=== PATIENT | male | born 1970 | race Caucasian/White ===

== ENCOUNTER 2023-06-15 06:21 | Emergency (ER) | payer OTHER, SELFPAY ==
[2023-06-15] VITALS (7 sets, daily range): BP systolic 121–167; BP diastolic 68–98; BMI 44.6
[2023-06-15 07:11] LABS: Hematocrit 42.1 % (39.0-52.0); Hemoglobin 15.4 g/dL (13.0-18.0); Mean Corp Hgb Conc. 36.6 g/dL (33.0-37.0); Mean Corpuscular Hgb 32.6 pg (27.0-31.0); Mean Platelet Volume 10.1 fL (7.4-10.4); Platelet Count 194 10^3/uL (130-400); Red Blood Cell Count 4.73 10^6/uL (4.70-6.10); Red Cell Dist. Width 13.2 % (11.5-14.5); White Blood Cell Count 10.5 10^3/uL (4.8-10.8)
--- NOTE | 2023-06-15 07:20 | ED.GENMED ---
History of Present Illness
General
Chief Complaint: Abdominal Pain
Source: patient
Exam Limitations: none
Time Seen by Provider: 06/15/23 07:07
Nursing documentation reviewed up to this point in time: agreed with
Travel History
Have you had any contact with someone who has COVID-19?: No
Do you have any symptoms of coronavirus? Fever > 100 degrees, chills, cough, shortness of breath, sore throat, loss of taste or smell, muscle aches, or headache?: No
History of Present Illness
History of Present Illness:
53 yo male presents to the emergency department complaining of right upper quadrant pain since 1 AM. He feels mild nausea, no vomiting. He states he was having gallbladder problems several months ago and seen at [facility]. They told him he was
going to have a cholecystectomy, but then his pain improved and he was discharged home.
Past History
Past History
ED Past Medical History: Other (Cervical spine disease) and Other (Kidney stone/gout)
ED Past Surgical History: Orthopedic (Spinal decompression)
Review of Systems
Review of Systems
Allergies reviewed?: Yes
All Other Systems: Not applicable
Constitutional: Reports no symptoms
EENT: Reports no symptoms
Respiratory: Reports no symptoms
Cardiac: Reports no symptoms
ABD/GI: Reports abdominal pain and nausea
: Reports no symptoms
Musculoskeletal: Reports no symptoms
Skin: Reports no symptoms
Neurological: Reports no symptoms
Endocrine: Reports no symptoms
Hematologic/Lymphatic: Reports no symptoms
Psychiatric: Reports no symptoms
Phy Exam
Physical Exam
Physical Exam:
Physical Exam
General: Appears uncomfortable, afebrile
Neck: supple. no meningeal signs. normal posterior pharynx
Heart: s1/s2 regular rate and rhythm, no murmur. equal radial
pulses.
HEENT: Pupils equal round reactive to light, EOMI
Lungs: no acute respiratory distress. clear bilaterally
Abdomen: normal bowel sounds. Right upper quadrant tenderness. No CVAT
Neuro: alert and oriented. no focal neurological deficits cranial nerves II through XII intact
Skin: no rash
Psychiatric: well kept. interactive and cooperative
Extremities: no edema. no calf tenderness. negative homans. good distal pulses
Course
Orders/Labs/Results
Orders:
Orders
06/15/23 06:45
Electrocardiogram (*1) Urgent
Reason for Study: Abdominal Pain
EKG- Treatment ONCE
06/15/23 07:04
CMP [Comprehensive Metabolic Panel] Urgent
Complete Blood Count/No Diff Urgent
Lipase Urgent
06/15/23 07:20
US Abdomen Complete/Upper Urgent
Comment:
Reason For Exam: RUQ abd pain since 1 am
06/15/23 07:23
Ketorolac [Toradol] 15 mg IV NOW STA
Abnormal Lab Results
06/15/23
07:04
MCH 32.6 H pg
(27.0-31.0)
Chloride 108 H mmol/L
(98-107)
Glucose 196 H mg/dl
(70-99)
06/15/23 07:04
06/15/23 07:04
Vital Signs
Initial and Last Documented VS:
Initial Vital Signs
Temp Pulse Resp BP Pulse Ox
97.8 F 85 20 167/92 98
06/15/23 06:34 06/15/23 06:34 06/15/23 06:34 06/15/23 06:34 06/15/23 06:34
Last Documented Vital Signs
Temp Pulse Resp BP Pulse Ox
97.8 F 77 16 121/68 94
06/15/23 06:34 06/15/23 08:07 06/15/23 08:07 06/15/23 10:00 06/15/23 10:45
MDM/Problems Addressed
Differential Diagnosis Includes:
Cholecystitis, pancreatitis
MDM/Problems Addressed:
53-year-old male with biliary colic. Pain improved after IV Toradol. Seen by Dr. Fishman, who will follow-up as outpatient.
*Radiology
Radiology exam reviewed: radiology read reviewed (Ultrasound abdomen shows gallbladder wall thickening, stone at gallbladder neck)
*Pulse Oximetry
Patient hypoxic: no
*EKG
Interpreted by ED Provider?: NA
*Tax Compliance Representative Interpretation
Rate: Tax Compliance Representative- N/A
*Critical Care Note
Total Time (30-74mins, 75-104mins- exclusive of procedures): Not Applicable
Patient Management
Social determinants of health affecting care: Strong social support
Discussion with other providers: Roving Weight Gauger (General surgery)
Escalation/DeEscalation of care consider admission/obs:
Admit not indicated
ED Attending Note
-
Portions of this chart may have been created with voice recognition software.� Occasional wrong word or��sound alike� substitutions may have occurred due to the inherent limitations of voice recognition software.
Discharge Plan
Departure
Patient Disposition: Home (Routine Discharge)
Date of Disposition: 06/15/23
Time of Disposition: 11:37
Patient with high blood pressure during this ER visit?: Yes
Condition: Good
Discharge Problem:
Biliary colic
Instructions: Gallstones ED, BLOOD PRESSURE
Prescriptions:
No Action
allopurinol 100 MG tablet
200 mg PO DAILY
Referrals:
Sandeep Fishman MD [Active] - Call in 1-3 days for appt
Walter Denis Jr., DO [Family Provider] -
Interventions
Interventions:
*Risk Screen - Suicide Last Done: 06/15/23 07:08
*General Assessment Last Done: 06/15/23 07:10
*Neglect/Abuse Screening Last Done: 06/15/23 07:08
ED- Fall Risk Assessment Last Done: 06/15/23 06:56
*ED COVID-19 Vaccine History Last Done: 06/15/23 06:56
*Nursing Disposition Last Done: 06/15/23 11:53
MV-Knotlc-Saewoatmfa Assessment Last Done: 06/15/23 07:09
Discharge Date and Time
Discharge Date/Time: 06/15/23 11:53
[2023-06-15 07:26] LABS: ALT (SGPT) 31 U/L (0-50); AST (SGOT) 28 U/L (17-59); Albumin 4.1 g/dl (3.5-5.0); Alkaline Phosphatase 110 U/L (38-126); Blood Urea Nitrogen 19 mg/dl (9-20); Carbon Dioxide 24 mmol/L (22-30); Chloride 108 mmol/L (98-107); Estimated Creatinine Clearance > 125 ml/min; Glucose 196 mg/dl (70-99); Lipase 139 U/L (23-300); Potassium 4.1 mmol/L (3.5-5.1); Sodium 137 mmol/L (135-145); Total Bilirubin 0.5 mg/dl (0.2-1.3); Total Protein 7.3 g/dl (6.3-8.2); eGFR > 60.00
[2023-06-15] MEDS: TORADOL 15 MG IV (07:27)
--- NOTE | 2023-06-15 11:37 | CON.GS ---
Consultation
-
Requesting Provider: Cameron
Performing Provider: Sravanthi
Reason for Consultation: Biliary colic
Medical History
-
Chief Complaint: Abd pain
History of Present Illness:
53M with second episode of acute onset RUQ pain without radiation that began last night at 1am after eating spaghetti and sausage. Similar episode several months ago at [facility], was advised to f/u outpt but was unable to for insurance reasons. He
denies f/c/n/v. He is currently pain free.
Past Medical History
Past Medical History: Other (chronic back issues, gout)
Past Surgical History: Orthopedic (spinal)
Social History
Alcohol: Occasional
Drug: None
Employment: Employed
Family History
Family History: Reviewed & Noncontributory
Allergies / Home Medications
Allergy/AdvReac Type Severity Reaction Status Date / Time
No Known Allergies Allergy Verified 06/15/23 06:33
Medication Instructions Recorded Confirmed Type
allopurinol 100 mg tablet 200 mg PO DAILY 05/31/21 06/15/23 History
Review of Systems
-
A 10 point review of systems was completed, and was negative except as per HPI.
Physical Exam
Vital Signs
Temp Pulse Resp BP Pulse Ox
97.8 F 77 16 121/68 94
06/15/23 06:34 06/15/23 08:07 06/15/23 08:07 06/15/23 10:00 06/15/23 10:45
06/14/23 06/15/23 06/16/23
06:59 06:59 06:59
Actual Weight 166.1 kg
Body Mass Index (BMI) 44.6
Lab Results
06/15/23 07:04
06/15/23 07:04
WBC 10.5 10^3/uL (4.8-10.8) 06/15/23 07:04
Hgb 15.4 g/dL (13.0-18.0) 06/15/23 07:04
Hct 42.1 % (39.0-52.0) 06/15/23 07:04
Plt Count 194 10^3/uL (130-400) 06/15/23 07:04
Physical Exam
General: Well Developed, Well Nourished and No Apparent Distress
GI: Soft, Non Tender, Non Distended and Obese
Neuro: AO x 3
Psych: Calm
Data Reviewed
-
Ultrasound: Image Personally Visualized and interpreted, Report Reviewed by me, Discussed with Physician, Discussed with Nurse and Discussed with Patient
Labs: Labs Reviewed by me and Discussed with Patient
Old Records: Reviewed
Assessment / Plan
-
53M with biliary colic, 2nd episode
AFVSS, presently pain has resolved
Labs unremarkable
US with stones but not stigmata of ACC
Plan:
PO challenge and DC home
My office will call Saturday to schedule elective rCCY for 07/01
Risks, benefits, complications and alternatives were discussed in detail including but not limited to pain, bleeding, scarring, infection, injury to nerves blood vessels and organs in the abdomen, need for further procedures, conversion to open
procedure and the pt verbalized understanding and agreed to proceed.
Dietary education provided - avoid fat in the diet as much as possible (warned about super bowl foods specifically)
== END 2023-06-15 11:53 | disposition home or self-care (01) ==
LOC: EMR 06:21
PROVIDERS: EMERGENCY PHYSICIAN Emergency Medicine; FAMILY PHYSICIAN Family Medicine
DX: K80.50 Calculus of bile duct without cholangitis or cholecystitis without obstruction (principal); Z87.442 Personal history of urinary calculi
CPT/HCPCS: 99284; 96374; 76700; 80053; 83690; 85027; 93005

== ENCOUNTER 2023-06-21 05:25 | Day surgery (SDC) | payer OTHER, SELFPAY ==
[2023-06-20 23:02] VITALS: BMI 45.3
[2023-06-20 23:04] VITALS: BP 153/70
[2023-06-21] VITALS (15 sets, daily range): BP systolic 110–162; BP diastolic 56–90; BMI 45.1
[2023-06-21] MEDS: ZOFRAN 4 MG IV (00:14)
[2023-06-21] MEDS: DILAUDID 1 MG IV ×3 (00:14→02:35)
[2023-06-21] MEDS: NSS 500 IV (00:15)
[2023-06-21 00:40] LABS: % Basophils 0.8 % (0-2); % Eosinophils 2.7 % (0-6); % Immature Granulocytes 0.7 % (0-0.5); % Lymphocytes 26.6 % (20.5-51.1); % Monocytes 7.7 % (1.7-9.3); % Neutrophils 61.5 % (42.2-75.2); Absolute Basophils 0.1 10^3/uL (0-0.2); Absolute Eosinophils 0.3 10^3/uL (0-0.7); Absolute Immature Granulocytes 0.1 10^3/uL (0-0.05); Absolute Lymphocytes 2.7 10^3/uL (1.2-3.4); Absolute Monocytes 0.8 10^3/uL (0.1-0.6); Absolute Neutrophils 6.4 10^3/uL (1.4-6.5); Hematocrit 43.1 % (39.0-52.0); Hemoglobin 15.2 g/dL (13.0-18.0); Mean Corp Hgb Conc. 35.3 g/dL (33.0-37.0); Mean Corpuscular Hgb 31.5 pg (27.0-31.0); Mean Corpuscular Volume 89.2 fL (80.0-94.0); Mean Platelet Volume 10.7 fL (7.4-10.4); Nucleated Red Blood Cells % 0 % (-); Platelet Count 197 10^3/uL (130-400); Red Blood Cell Count 4.83 10^6/uL (4.70-6.10); Red Cell Dist. Width 13.3 % (11.5-14.5); White Blood Cell Count 10.3 10^3/uL (4.8-10.8)
--- NOTE | 2023-06-21 01:05 | ED.GENMED ---
History of Present Illness
General
Chief Complaint: Abdominal Pain
Source: patient
Exam Limitations: none
Time Seen by Provider: 06/20/23 23:35
Travel History
Have you had any contact with someone who has COVID-19?: No
Do you have any symptoms of coronavirus? Fever > 100 degrees, chills, cough, shortness of breath, sore throat, loss of taste or smell, muscle aches, or headache?: No
History of Present Illness
History of Present Illness:
This is a 53 year old male that comes in with c/o abd pain. States that he as here last week with pain but this is worse then before. States that he was sweating and that this is worse then ever. States that this started at 7pm tonight. Denies any
fever, chills, chest pain, SOB, nausea, vomiting, diarrhea, headache, dizziness, urinary burning.
Past History
Past History
ED Past Medical History: Other (Cervical spine disease, Kidney stones, Gout, Gallstones); Negative Asthma, HTN, Hypercholesterolemia or NIDDM
ED Past Surgical History: Orthopedic (Spinal decompression)
Social History
Tobacco: Non-smoker
Alcohol: Occasional
Personal: Single
Living: alone
Review of Systems
Review of Systems
All Other Systems: ROS reviewed and negative except as documented in HPI and ROS
Constitutional: Reports no symptoms; Denies fever or chills
EENT: Reports no symptoms
Respiratory: Reports no symptoms; Denies cough or trouble breathing
Cardiac: Reports no symptoms; Denies chest pain
ABD/GI: Reports abdominal pain; Denies nausea, vomiting or diarrhea
: Reports no symptoms; Denies dysuria, frequency or urgency
Musculoskeletal: Reports no symptoms
Skin: Reports no symptoms
Neurological: Reports no symptoms; Denies dizzy or headache
Psychiatric: Reports no symptoms
Phy Exam
General Physical Exam
General Presentation: moderate distress
General age: appears stated age
General Skin: diaphoretic
General Habitus: obese
General Mental: alert
General Hydration: appears well hydrated
ENT Exam
ENT Exam: TM's normal, pharynx normal and neck supple
Eye Exam
Eye Exam: EOMI
Cardiovascular Exam
Cardiovascular Exam: regular rate/rhythm, no edema and normal peripheral pulses
Pulmonary Exam
Pulmonary Exam: lungs clear, no respiratory distress, no rales, chest non tender, no crackles, no rhonchi, no wheezing and no cough
Gastrointestinal Exam
Gastrointestinal Exam: normal bowel sounds, soft, no organomegaly, no pulsatile mass, non distended, tender (right upper abd tenderness with palpation) and other (Obese)
Musculoskeletal Exam
Musculoskeletal Exam: full ROM and no edema
Skin Exam
Skin Exam: normal color, warm/dry, no rash and no petechia
Psychiatric Exam
Psychiatric Exam: normal mood/affect
Course
Orders/Labs/Results
Orders:
Orders
06/20/23 23:44
Complete Blood Count/With Diff Urgent
Comprehensive Metabolic Panel Urgent
Lipase Urgent
HYDROmorphone [Dilaudid] 1 mg IV NOW STA
Ondansetron Injectable [Zofran] 4 mg IV NOW STA
06/20/23 23:45
0.9% Sodium Chloride 500 ml [Nss] 500 ml IV BOLUS
06/21/23 01:15
HYDROmorphone [Dilaudid] 1 mg IV NOW STA
US Abdomen Limited Urgent
Comment: History of gallstones
Reason For Exam: Upper abd pain
Abnormal Lab Results
06/21/23
00:16
MCH 31.5 H pg
(27.0-31.0)
MPV 10.7 H fL
(7.4-10.4)
Abs Immat Gran (auto) 0.1 H 10^3/uL
(0-0.05)
Absolute Monos (auto) 0.8 H 10^3/uL
(0.1-0.6)
Immature Gran % 0.7 H %
(0-0.5)
Glucose 146 H mg/dl
(70-99)
06/21/23 00:16
06/21/23 00:16
Glucose nonfasting. Lipase normal at 104
Vital Signs
Initial and Last Documented VS:
Initial Vital Signs
Temp Pulse Resp BP Pulse Ox
97.6 F 80 20 153/70 98
06/20/23 23:04 06/20/23 23:04 06/20/23 23:04 06/20/23 23:04 06/20/23 23:04
Last Documented Vital Signs
Temp Pulse Resp BP Pulse Ox
97.9 F 63 18 137/86 95
06/21/23 01:20 06/21/23 01:20 06/21/23 01:20 06/21/23 01:20 06/21/23 01:20
MDM/Problems Addressed
Differential Diagnosis Includes:
Cholecystitis, Pancreatitis
MDM/Problems Addressed:
This is a 53 year old male that comes in with c/o abd pain. States that this is the worse pain he has ever had. states that he has not been watching what he eats and that he is due to have the gallbladder removed on 07/01. States that he was here
last week with pain.
Will check labs and get US.
Back into see patient. explained that his stone is in the neck of the gallbladder and there is wall thickening. Will admit patient and notify surgery. Hospitalist notified and surgery placed on Consult.
Chronic conditions affecting care:
gallstones
Acute Exacerbation and/or Progression of Chronic Illness:
Gallstones
*Radiology
Radiology exam reviewed: radiology read reviewed (US night hawk- Findings of biliary colic versus acute cholecystitis. Gallstones lodged in the neck of moderately distended gallbladder. mild gallbladder wall thickening of 3mm. Gallbladder
adenomyomatosis. Negative bustos sign although patient received pain relieving medications. No biliary ductal ) and other (US cont= No biliary ductal dilation. Hyperechoic fatty liver. )
*Pulse Oximetry
Patient hypoxic: no
*EKG
Interpreted by ED Provider?: NA
Rate: EKG- N/A
*Distribution Specialist Interpretation
Rate: Distribution Specialist- N/A
*Critical Care Note
Total Time (30-74mins, 75-104mins- exclusive of procedures): Not Applicable
ED Attending Note
-
Portions of this chart may have been created with voice recognition software.� Occasional wrong word or��sound alike� substitutions may have occurred due to the inherent limitations of voice recognition software.
Discharge Plan
Departure
Patient Disposition: Admit
Date of Disposition: 06/21/23
Time of Disposition: 02:33
Admit to: Med/Surg
Presentation/result/management discussed w/ accepting MD/DO: Hospitalist
Patient with high blood pressure during this ER visit?: Yes
Condition: Good
Covid-19: Not Applicable
Discharge Problem:
Cholecystitis, acute, Abdominal pain
Prescriptions:
No Action
allopurinol 100 MG tablet
200 mg PO DAILY
Referrals:
Walter Denis Jr., DO [Family Provider] -
Interventions
Interventions:
*Risk Screen - Suicide Last Done: 06/21/23 01:03
*Neglect/Abuse Screening Last Done: 06/21/23 01:03
[2023-06-21 01:36] LABS: Blood Urea Nitrogen 16 mg/dl (9-20); Glucose 146 mg/dl (70-99); Sodium 139 mmol/L (135-145); eGFR > 60.00
[2023-06-21 01:37] LABS: ALT (SGPT) 30 U/L (0-50); AST (SGOT) 26 U/L (17-59); Albumin 4.2 g/dl (3.5-5.0); Alkaline Phosphatase 99 U/L (38-126); Calcium 8.9 mg/dl (8.4-10.2); Carbon Dioxide 25 mmol/L (22-30); Chloride 107 mmol/L (98-107); Lipase 104 U/L (23-300); Potassium 4.4 mmol/L (3.5-5.1); Total Bilirubin 0.5 mg/dl (0.2-1.3); Total Protein 7.4 g/dl (6.3-8.2)
--- NOTE | 2023-06-21 03:47 | HPS.HSE ---
Family Physician
-
Family Physician: Walter Denis
Chief Complaint
-
abdominal pain
History of Present Illness
Mr. Chidi Yoo is a 53 yo man with hx renal stones, gout, recent ER visit 06/15 with biliary colic and plans for future outpatient cholecystectomy presents to the ER with increased abdominal pain.
Patient states he didn't follow the diet he was supposed to. He had wings for dinner and then had significant pain following. Pain finally relieved after multiple doses of dilaudid in the ER. No nausea/vomiting. No fevers. No diarrhea. No
chest pain or shortness of breath. Currently pain controlled.
Medical History
Past Medical History
Past Medical History: Reports Other (renal stones, gout, biliary colic)
Past Surgical History: Reports Orthopedic
Social History
Tobacco: Non-smoker
Alcohol: Occasional
Family History
Family History: Not pertinent
Allergies / Home Medications
Allergies reflects when Allergies were last updated in [facility].
Home Medications with original date entered in [facility]
Allergy/Medication List:
Allergies
Allergy/AdvReac Type Severity Reaction Status Date / Time
No Known Allergies Allergy Verified 06/20/23 23:04
Home Medications
allopurinol 100 mg tablet 200 mg PO DAILY 05/31/21
Review of Systems
-
History Source: Patient
A 12 point ROS was completed and negative except as noted: Yes
Physical Exam
Vital Signs
Vital Signs
Temp Pulse Resp BP Pulse Ox
97.9 F 56 18 138/83 96
06/21/23 02:30 06/21/23 02:30 06/21/23 02:30 06/21/23 03:00 06/21/23 03:45
Physical Exam
General: Obese
HEENT: PERRLA
Respiratory: Clear; No Wheezes
Cardiac: S1/S2 and Regular Rhythm
GI: Other (mildly tender RUQ )
Musculoskeletal: No Edema
Skin: Warm and Dry; No Rash
Neuro: AO x 3
Psych: Calm
Laboratory Results
-
06/21/23 00:16
06/21/23 00:16
Laboratory Results
Total Bilirubin 0.5 mg/dl (0.2-1.3) 06/21/23 00:16
AST 26 U/L (17-59) 06/21/23 00:16
ALT 30 U/L (0-50) 06/21/23 00:16
Alkaline Phosphatase 99 U/L (38-126) 06/21/23 00:16
Lipase 104 U/L (23-300) 06/21/23 00:16
Data Reviewed
-
Diagnostic Radiology: Report Reviewed by me
Lab Data: Labs Reviewed by me
Impression/Plan
-
Mr. Chidi Yoo is a 53 yo man with hx renal stones, gout, recent ER visit 06/15 with biliary colic and plans for future outpatient cholecystectomy presents to the ER with increased abdominal pain.
Triage VS: T 97.8, P 77, RR 16, BP 121/68 SpO2 94%
LABS: WBC 10.3, Hg 15.2, PLT 197, Na 139, K+ 4.4, Cr 1.0, Glucose 146, liver enzymes WNL
Abdominal US: 'findings of biliary colic versus acute cholecystitis. Gallstones lodge in the neck of moderately distended gallbladder. mild gallbladder wall thickening ... no biliary ductal dilatation.'
MAR: IVF, IV dilaudid x 3
Acute Cholecystitis versus biliary colic
-third ER visit for issue (was also seen at [facility])
-gallbladder distention and wall thickening may be e/o cholecystitis although no current fever or elevated WBC
-will cover with antibiotics for now (can stop post OR)
-GS consulted for cholecystectomy
-NPO
-IVF
DVT PPx SCD
[2023-06-21] MEDS: STERILE WATER FOR INJECTION 10 ML IV (04:20)
[2023-06-21] MEDS: ROCEPHIN 1000 MG IV (04:20)
[2023-06-21] MEDS: FLAGYL 500 MG 100 IV (04:23)
[2023-06-21] MEDS: NSS 1000 IV (05:39)
[2023-06-21 06:14] LABS: % Basophils 0.6 % (0-2); % Eosinophils 1.3 % (0-6); % Immature Granulocytes 0.5 % (0-0.5); % Lymphocytes 21.6 % (20.5-51.1); % Monocytes 6.8 % (1.7-9.3); % Neutrophils 69.2 % (42.2-75.2); Absolute Basophils 0.1 10^3/uL (0-0.2); Absolute Eosinophils 0.2 10^3/uL (0-0.7); Absolute Immature Granulocytes 0.1 10^3/uL (0-0.05); Absolute Lymphocytes 2.6 10^3/uL (1.2-3.4); Absolute Monocytes 0.8 10^3/uL (0.1-0.6); Absolute Neutrophils 8.3 10^3/uL (1.4-6.5); Hematocrit 42.9 % (39.0-52.0); Hemoglobin 15.2 g/dL (13.0-18.0); Mean Corp Hgb Conc. 35.4 g/dL (33.0-37.0); Mean Corpuscular Hgb 31.6 pg (27.0-31.0); Mean Corpuscular Volume 89.2 fL (80.0-94.0); Mean Platelet Volume 10.4 fL (7.4-10.4); Nucleated Red Blood Cells % 0 % (-); Platelet Count 193 10^3/uL (130-400); Red Blood Cell Count 4.81 10^6/uL (4.70-6.10); Red Cell Dist. Width 13.3 % (11.5-14.5); White Blood Cell Count 11.9 10^3/uL (4.8-10.8)
[2023-06-21 06:43] LABS: ALT (SGPT) 34 U/L (0-50); AST (SGOT) 30 U/L (17-59); Albumin 4.2 g/dl (3.5-5.0); Alkaline Phosphatase 80 U/L (38-126); Blood Urea Nitrogen 14 mg/dl (9-20); Calcium 8.9 mg/dl (8.4-10.2); Carbon Dioxide 25 mmol/L (22-30); Chloride 107 mmol/L (98-107); Estimated Creatinine Clearance > 125 ml/min; Glucose 144 mg/dl (70-99); Magnesium 2.1 mg/dl (1.6-2.3); Potassium 4.7 mmol/L (3.5-5.1); Sodium 138 mmol/L (135-145); Total Bilirubin 0.4 mg/dl (0.2-1.3); Total Protein 7.4 g/dl (6.3-8.2); eGFR > 60.00
--- NOTE | 2023-06-21 09:22 | CON.GS ---
Addendum entered and electronically signed by Sandeep Fishman MD 06/21/23 10:46:
I saw and examined the patient.
The Corn Cooker's note was reviewed and I agree with the note.
Comment: Pain improved this am but pt is very concerned about DC, he does not wish to experience another episode. His exam this am is benign. No sig PMH. OK to transfer to service. Plan: [facility] for delon bell
Original Note:
Consultation
-
Date/Time Consultation Requested: 223
Requesting Provider: [place]
Performing Provider: Steve Fishman
Medical History
-
Chief Complaint: RUQ pain
History of Present Illness:
This is a 53 yo male known to our service from prior presentation about one week ago with a history of obesity, back pain, and biliary colic from stones. He presented last weekend with RUQ pain after a meal of spaghetti with sausage with similar
episode several months prior. US with cholelithiasis without cholecystitis at that time and he was discharged to home with plan for outpatient robotic cholecystectomy which was scheduled for later this month. He was advised on a low fat diet until
surgery could be preformed. Unfortunately, last night he had wings with blue cheese dressing and developed severe and recurrent symptoms causing him to present through the ED for evaluation. He is currently pain free. He notes chills overnight but
denies fevers. He has had no nausea or vomiting.
Past Medical History
Past Medical History: Other (gout, renal stones, biliary colic, back pain)
Past Surgical History: Orthopedic (spinal)
Social History
Tobacco: Non-Smoker
Alcohol: Occasional
Drug: None
Family History
Family History: Reviewed & Not Pertinent
Allergies / Home Medications
Allergy/AdvReac Type Severity Reaction Status Date / Time
No Known Allergies Allergy Verified 06/20/23 23:04
Medication Instructions Recorded Confirmed Type
allopurinol 100 mg tablet 200 mg PO QPM 05/31/21 06/21/23 History
Review of Systems
-
History Source: Patient
All other systems: Negative unless noted
A 10 point review of systems was completed, and was negative except as per HPI.
Physical Exam
Vital Signs
Temp Pulse Resp BP Pulse Ox
97.9 F 56 18 110/56 97
06/21/23 02:30 06/21/23 02:30 06/21/23 02:30 06/21/23 05:34 06/21/23 08:06
06/20/23 06/21/23 06/22/23
06:59 06:59 06:59
Actual Weight 168 kg 168.1 kg
Body Mass Index (BMI) 45.1
Lab Results
06/21/23 05:39
06/21/23 05:39
WBC 11.9 10^3/uL (4.8-10.8) H 06/21/23 05:39
Hgb 15.2 g/dL (13.0-18.0) 06/21/23 05:39
Hct 42.9 % (39.0-52.0) 06/21/23 05:39
Plt Count 193 10^3/uL (130-400) 06/21/23 05:39
Abs Immat Gran (auto) 0.1 10^3/uL (0-0.05) H 06/21/23 05:39
Neutrophils % 69.2 % (42.2-75.2) 06/21/23 05:39
Physical Exam
General: Well Developed and No Apparent Distress
HEENT: Normocephalic and Moist Mucous Membranes
Respiratory: Non Labored Respirations
GI: Soft, Non Tender and Obese
Skin: Warm and Dry
Neuro: Awake, Alert and AO x 3
Psych: Calm
Data Reviewed
-
Ultrasound: Image Personally Visualized and interpreted, Report Reviewed by me, Discussed with Physician, Discussed with Nurse and Discussed with Patient
Labs: Labs Reviewed by me, Discussed with Physician, Discussed with Nurse and Discussed with Patient
Old Records: Reviewed
Assessment / Plan
-
53 yo male with recurrent biliary colic presenting for recurrent episode after a high fat meal. Pain currently resolved. Mild leukocytosis noted. US reviewed without noted ACC, cholelithiasis again noted. US is limited given body habitus. LFT's WNL.
2nd episode of intractable RUQ pain leading to an ED visit within a week. AFVSS.
Plan:
Keep NPO
Tentative OR later today for lap vs robotic cholecystectomy
Continue ABX pending OR
Analgesics prn
IVF while NPO
--- NOTE | 2023-06-21 10:05 | CM ---
CM reviewed medical records. CM met with patient in room. Patient confirmed demographics. Patient lives independently. Patient denied history of VN, SNF or DME. Patient is active with his PCP. patient uses [facility] in [place].
PLAN : Home no needs.
--- NOTE | 2023-06-21 11:39 | W.PN.HOSP.TC ---
Addendum entered and electronically signed by Charlie Del Valle MD 06/21/23 14:59:
Patient seen and examined
Discussed with surgery and resident
Acute cholecystitis.
No evidence of systemic illness, although presents with persistent and severe right upper quadrant pain fever and chills.
Imaging consistent with acute cholecystitis
No clinical, lab, or radiologic evidence of choledocholithiasis.
Continue antibiotics
Pending OR.
Patient will be transferred postoperatively to surgery service.
Original Note:
Today's Communication/Plan
-
- Keep NPO.
- Continue antibiotics and pain management PRN.
- Anticipated cholecystectomy today.
Assessment / Plan
Assessment / Plan
Assessment:
Chidi Yoo, 53 year-old male presented to the emergency with worsening RUQ abdominal pain. He has had two recent ED visits for similar abdominal pain from known cholelithiasis. He was scheduled to undergo an elective cholecystectomy later this
month, but came to the emergency after he developed acute pain last night. States that the current episode is the worst pain he has been in, and that the pain has continued to progress with each episodes. Pain is stable with medications now, and
surgery has planned an anticipated cholecystectomy for today.
Impression:
* Acute cholecystitis vs. biliary colic
Plan:
Acute cholecystitis vs. biliary colic
- He has experienced progressive intermittent RUQ pain for the past few months.
- Now has been to the ED thrice for this; the latter two within a week.
- Last night he had a heavy meal, and developed acute pain.
- States that this is the worst RUQ pain he has had so far.
- He has known cholelithiasis, and was scheduled for an elective cholecystectomy later in the month.
- Pain has now improved with medications.
- He has been afebrile, with slight leukocytosis.
- LFTs, ALP and labs are otherwise unremarkable
- On empiric antibiotics, pending surgery.
- Will remain NPO for now.
- Anticipated cholecystectomy today.
DVT prophylaxis
- SCD.
Code status
- Full.
Anticipated Discharge: 24 - 48 hours
Subjective/Interval History
-
Date of Service: June 21, 2023
Objective Data
-
Labs:
Laboratory Results
06/21/23 06/21/23
00:16 05:39
WBC 10.3 11.9 H
Hgb 15.2 15.2
Hct 43.1 42.9
Plt Count 197 193
Sodium 139 138
Potassium 4.4 4.7
Chloride 107 107
Carbon Dioxide 25 25
BUN 16 14
Creatinine 1.0 0.8
Glucose 146 H 144 H
Calcium 8.9 8.9
Total Bilirubin 0.5 0.4
AST 26 30
ALT 30 34
Alkaline Phosphatase 99 80
Vital Signs:
Vital Signs
Temp Pulse Resp BP Pulse Ox
98.2 F 60 18 144/79 98
06/21/23 10:56 06/21/23 10:56 06/21/23 10:56 06/21/23 10:56 06/21/23 10:56
Review of Systems
-
History Source: Patient
Constitutional: Reports No Symptoms
EENT: Reports No Symptoms Reported
Respiratory: Reports No Symptoms
Cardiac: Reports No Symptoms
Abdomen/GI: Reports Abdominal Pain, Nausea and Anorexia
Genitourinary: Reports No Symptoms
Musculoskeletal: Reports No Symptoms
Skin: Reports No Symptoms
Neuro: Reports No Symptoms
Endocrine: Reports No Symptoms
Hematologic / Lymphatic: Reports No Symptoms
Allergy / Immunology: Reports No Symptoms
Physical Exam
-
General: No Apparent Distress and Comfortable
HEENT: Normocephalic, Atraumatic, Moist Mucous Membranes and Anicteric
Respiratory: Clear to Auscultation
Cardiac: Regular Rhythm and S1/S2
GI: Soft, Tender and No Hepatosplenomegaly
Genito-urinary: No Costovertebral Tender
Musculoskeletal: No Clubbing, No Cyanosis and No Edema
Neuro: AO x 3 and No Motor Deficits
Hematologic / Lymphatic: No Lymphadenopathy
Psych: Calm
--- NOTE | 2023-06-21 15:22 | W.IMMPOSTOP ---
Surgical Immed Post Op Note
-
Primary Surgeon: Sravanthi
Assisting: Nona GALVIN
Pre-op Diagnosis: Biliary colic
Post-op Diagnosis: Chronic cholecystitis
Procedure Performed: Robot assisted laparoscopic cholecystectomy
Anesthesia Type: GETA
Specimen / Cultures: Gallbladder
Estimated Blood Loss: 5cc
Complications: None immediate
Operative Findings: softly distended gallbladder with thickened wall and pericholecystic edema, significant fatty encasement of the wall
--- NOTE | 2023-06-21 15:23 | OR.RPT ---
Operative Report
Operative Report
Primary Surgeon: Sravanthi
Assisting: Nona GALVIN
Pre-op Diagnosis: Biliary colic
Post-op Diagnosis: Chronic cholecystitis
Procedure Performed: Robot assisted laparoscopic cholecystectomy
Anesthesia Type: GETA
Specimen / Cultures: Gallbladder
Estimated Blood Loss: 5cc
Complications: None immediate
Operative Findings: Softly distended gallbladder with thickened wall and pericholecystic edema, significant fatty encasement of the wall
Date of Surgery:� 06/21/23
Indications: This 53M developed recurrent biliary colic with return to the emergency department after 4 days.� Liver labs were within normal limits. No ductal dilation on imaging. Laparoscopic cholecystectomy was elected. An umbilical hernia was
noted. Due to his weight, repair was not recommended at this time.
Description of procedure: The patient was placed on the operating table in the supine position. General anesthesia was induced. A time-out was completed verifying correct patient, procedure, site, positioning, and special equipment prior to
beginning this procedure. An orogastric tube was placed. The abdomen was prepped and draped in the usual sterile fashion. The drain was prepped into the field. The drain was prepped into the field. A stab incision was made in left upper quadrant and
the Veress needle was inserted. Proper position was confirmed by aspiration and saline meniscus test. The abdomen was insufflated with carbon dioxide to a pressure of 12mmHg. The patient tolerated insufflation well.
A 8mm trocar was then inserted above the umbilicus. The laparoscope was inserted and the abdomen inspected. No injuries from initial trocar placement or Veress needle insertion were noted. Additional 8mm trocars were then inserted in the following
locations: two in the right lower quadrant and to the left of the umbilicus and just above. The abdomen was inspected and an umbilical hernia with incarcerated omentum was identified. This was left alone and attention was turned to the gallbladder.
The table was placed in the reverse Trendelenburg position with the right side up. The gallbladder was softly distended, encased in a thick layer of fat.� The dome of the gallbladder was grasped with an atraumatic grasper and retracted over the dome
of the liver. The infundibulum was then grasped with an atraumatic grasper and retracted toward the right lower quadrant. This maneuver exposed Calot�s triangle. The peritoneum overlying the gallbladder infundibulum was then incised. The thick
fatty encasement was carefully dissected down to the gallbladder wall. The critical view was developed bluntly such that only two structures were going into the gallbladder and a clear view of the liver was noted between them. The cystic artery was
controlled with bipolar and divided. The cystic duct was controlled with locking clips and divided. The gallbladder was dissected off the cystic plate, the posterior plane was edematous.
Hemostasis was assured and the gallbladder was removed using an endoscopic retrieval bag placed through the umbilical port. The incision was enlarged slightly to accommodate the gallbladder. The gallbladder was passed off the table as a specimen.
The gallbladder fossa was irrigated with sterile saline and was again inspected and hemostasis was assured. There was no evidence of bleeding from the gallbladder fossa or cystic artery or leakage of the bile from the cystic duct stump. The
umbilical trocar site was closed at the fascial level with 2-0 PDS in laparoscopic fashion. Secondary trocars were removed under direct vision and noted to be hemostatic. The abdomen was allowed to collapse. The skin was closed with subcuticular
sutures of 4-0 monocryl and topical skin adhesive. The orogastric tube was removed.
The patient tolerated the procedure well and was taken to the postanesthesia care unit in stable condition.
== END 2023-06-21 17:45 | disposition home or self-care (01) ==
LOC: SDS 05:25
PROVIDERS: Clinical Nurse Specialist Family Health; Student in an Organized Health Care Education/Training Program; ATTENDING PHYSICIAN Surgery; CONSULT PHYSICIAN Surgery; EMERGENCY PHYSICIAN Emergency Medicine; FAMILY PHYSICIAN Family Medicine
DX: K80.10 Calculus of gallbladder with chronic cholecystitis without obstruction (principal); K42.9 Umbilical hernia without obstruction or gangrene
CPT/HCPCS: 47562; 88304; 76705; 80053; 83690; 83735; 85025; 96361; 96374; 96375; 96376; 99285

== ENCOUNTER 2024-04-18 03:03 | Emergency (ER) | payer OTHER, SELFPAY ==
[2024-04-18 03:16] VITALS: BP 150/89
[2024-04-18 03:45] VITALS: BMI 26.2
[2024-04-18 03:52] VITALS: BP 144/73
--- NOTE | 2024-04-18 04:10 | ED.GENMED ---
History of Present Illness
General
Chief Complaint: Chest Pain
Source: patient
Time Seen by Provider: 04/18/24 03:58
History of Present Illness
History of Present Illness:
This patient is a 54-year-old male who presents emergency department complaints of chest pain located just to the left of the central anterior chest. 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 Since then, the pain has been on and off described as 'here and there', not specifically provoked or relieved by deep breath, activity, rest, etc. The pain will last for no more than a few seconds at a time and then resolved
completely before coming back unpredictably. It is specifically not pleuritic. He denies leg swelling, dyspnea, fever, chills, nausea, vomiting, diaphoresis, neck pain, headache, dizziness, or other complaints. He denies family history of early
cardiac illness, clotting disorder, etc.
Past History
Past History
ED Past Medical History: Other (Cervical spine disease, Kidney stones, Gout,); Negative Asthma, HTN, Hypercholesterolemia or NIDDM
ED Past Surgical History: Cholecystectomy and Orthopedic (Spinal decompression)
Social History
Tobacco: Non-smoker
Alcohol: Occasional
Drug: None
Personal: Single
Living: alone
Employment: Employed
Phy Exam
Physical Exam
Physical Exam:
GENERAL: Alert , in no apparent distress, very pleasant, well-appearing
EYE: pupils equal and reactive
NECK: Supple, no significant adenopathy.
ENT: o/p clr, mmm.
CARDIAC: Regular rate and rhythm .
LUNGS: Clear breath sounds bilaterally, no acute respiratory distress, no wheezes/rales/rhonchi
ABDOMEN: Soft, without focal tenderness, no r/g, no cvat
NEUROLOGICAL: Alert and oriented, no focal neuro deficits
SKIN: Warm and dry, skin intact.
MUSCULOSKELETAL: No edema, well perfused.
PSYCH: Normal and appropriate interaction.
Scores
Heart Score for Chest Pain Patients
STEMI patient?: Not applicable
Course
Orders/Labs/Results
Orders:
Orders
04/18/24 03:04
Electrocardiogram (*1) Urgent
Reason for Study: Chest Pain
EKG- Treatment ONCE
04/18/24 03:34
Cardiac Monitoring- Treatment ONCE
04/18/24 03:41
CMP [Comprehensive Metabolic Panel] Urgent
Complete Blood Count/With Diff Urgent
Troponin I Urgent
Abnormal Lab Results
04/18/24
03:41
RBC 4.53 L 10^6/uL
(4.70-6.10)
MCH 32.2 H pg
(27.0-31.0)
Abs Immat Gran (auto) 0.1 H 10^3/uL
(0-0.05)
Absolute Lymphs (auto) 3.8 H 10^3/uL
(1.2-3.4)
Absolute Monos (auto) 0.9 H 10^3/uL
(0.1-0.6)
Immature Gran % 0.6 H %
(0-0.5)
Glucose 226 H mg/dl
(70-99)
04/18/24 03:41
04/18/24 03:41
Vital Signs
Initial and Last Documented VS:
Initial Vital Signs
Temp Pulse BP Pulse Ox
97.8 F 77 150/89 97
04/18/24 03:16 04/18/24 03:16 04/18/24 03:16 04/18/24 03:16
Last Documented Vital Signs
Temp Pulse Resp BP Pulse Ox
97.8 F 76 13 150/89 97
04/18/24 03:16 04/18/24 03:45 04/18/24 03:45 04/18/24 03:16 12/14/24 03:45
*Critical Care Note
Total Time (30-74mins, 75-104mins- exclusive of procedures): Not Applicable
Update Note
Update Note:
Patient presents to the Emergency Department with chest discomfort___
Number and Complexity of Problems Addressed at the Encounter
� Chronic conditions affecting care:
� Acute Exacerbation and/or Progression of Chronic Illness:
� Differential Diagnosis includes: But not limited to muscle strain, ACS, pericarditis, etc. etc.
Amount and/or Complexity of Data to be Reviewed and Analyzed
� I performed an independent evaluation of and my interpretation is:
EKG:
CT:
Xrays:
Laboratory Studies: Mild hyperglycemia, otherwise generally unremarkable
Other:
� Review of other/old records reveals:
� Clinical information was obtained by an independent historian:
� Prescriptions/Medications Considered but not given:
� Further testing considered but not performed:
Risk of Complications and/or Morbidity or Mortality of Patient Management
� Social determinants of health affecting care:
� Discussion with other providers (PCP, Hospitalists, Consultants, etc):
� Escalation of care including admission/observation vs risk of discharge considered: 6:04 AM patient has slept much of his stay here. He remains comfortable without pain. Discussed with patient importance of follow-up and
reasons return to the ER. Highly doubt PE, dissection, ACS as symptoms very inconsistent with this. Recommend patient have outpatient cardiology follow-up and discussed with him reasons return to the ER.
ED Attending Note
-
Portions of this chart may have been created with voice recognition software.� Occasional wrong word or��sound alike� substitutions may have occurred due to the inherent limitations of voice recognition software.
Discharge Plan
Departure
Patient Disposition: Home (Routine Discharge)
Date of Disposition: 04/18/24
Time of Disposition: 06:16
Patient with high blood pressure during this ER visit?: Yes
Condition: Good
Discharge Problem:
Chest pain
Instructions: Chest Pain DCA Follow Up, BLOOD PRESSURE
Prescriptions:
No Action
allopurinol 100 MG tablet
200 mg PO QPM
oxycodone 5 mg tablet
5 - 10 mg PO Q4HPRN PRN (Reason: moderate to severe pain) Qty: 20 0RF
Referrals:
Walter Denis Jr., DO [Family Provider] -
Activity Restrictions/Additional Instructions:
IF YOU DEVELOP RECURRENT OR NEW PAIN, TROUBLE BREATHING, FEVER, BACK/NECK/JAW PAIN, DIZZINESS, OR OTHER WORRISOME SIGNS, GO TO THE ER IMMEDIATELY!
Interventions
Interventions:
*Risk Screen - Suicide Last Done: 04/18/24 03:45
*General Assessment Last Done: 04/18/24 03:45
*Neglect/Abuse Screening Last Done: 04/18/24 03:45
ED- Fall Risk Assessment Last Done: 04/18/24 03:54
*ED COVID-19 Vaccine History Last Done: 04/18/24 03:05
ED- Cardiac Assessment Last Done: 04/18/24 03:54
Discharge Date and Time
Print Language: GREEK
[2024-04-18 04:19] LABS: % Basophils 0.6 % (0-2); % Eosinophils 3.1 % (0-6); % Immature Granulocytes 0.6 % (0-0.5); % Lymphocytes 38.6 % (20.5-51.1); % Monocytes 8.7 % (1.7-9.3); % Neutrophils 48.4 % (42.2-75.2); Absolute Basophils 0.1 10^3/uL (0-0.2); Absolute Eosinophils 0.3 10^3/uL (0-0.7); Absolute Immature Granulocytes 0.1 10^3/uL (0-0.05); Absolute Lymphocytes 3.8 10^3/uL (1.2-3.4); Absolute Monocytes 0.9 10^3/uL (0.1-0.6); Absolute Neutrophils 4.8 10^3/uL (1.4-6.5); Hemoglobin 14.6 g/dL (13.0-18.0); Mean Corp Hgb Conc. 35.6 g/dL (33.0-37.0); Mean Corpuscular Hgb 32.2 pg (27.0-31.0); Mean Corpuscular Volume 90.5 fL (80.0-94.0); Mean Platelet Volume 10.1 fL (7.4-10.4); Nucleated Red Blood Cells % 0 % (-); Platelet Count 195 10^3/uL (130-400); Red Blood Cell Count 4.53 10^6/uL (4.70-6.10); Red Cell Dist. Width 13.2 % (11.5-14.5); White Blood Cell Count 9.8 10^3/uL (4.8-10.8)
[2024-04-18 04:36] LABS: ALT (SGPT) 37 U/L (0-50); AST (SGOT) 30 U/L (17-59); Albumin 4.3 g/dl (3.5-5.0); Alkaline Phosphatase 98 U/L (38-126); Blood Urea Nitrogen 18 mg/dl (9-20); Carbon Dioxide 25 mmol/L (22-30); Chloride 106 mmol/L (98-107); Estimated Creatinine Clearance 118 ml/min; Glucose 226 mg/dl (70-99); Sodium 141 mmol/L (135-145); Total Bilirubin 0.3 mg/dl (0.2-1.3); Total Protein 7.4 g/dl (6.3-8.2); eGFR > 60.00
[2024-04-18 05:00] VITALS: BP 152/86
[2024-04-18 05:21] LABS: Troponin I < 0.012 ng/ml
[2024-04-18 06:00] VITALS: BP 159/97
== END 2024-04-18 07:00 | disposition home or self-care (01) ==
LOC: EMR 03:03
PROVIDERS: EMERGENCY PHYSICIAN Emergency Medicine; FAMILY PHYSICIAN Family Medicine
DX: R07.89 Other chest pain (principal); Z90.49 Acquired absence of other specified parts of digestive tract
CPT/HCPCS: 99284; 80053; 84484; 85025; 93005

== ENCOUNTER 2024-10-10 21:27 | Observation (INO) | payer OTHER, SELFPAY ==
[2024-10-10 17:00] VITALS: BP 150/92
[2024-10-10] MEDS: VALIUM 5 MG PO (19:06)
[2024-10-10] MEDS: TORADOL 60 MG IM (19:07)
[2024-10-10] MEDS: DECADRON 10 MG IM (19:08)
--- NOTE | 2024-10-10 19:10 | ED.GENMED ---
History of Present Illness
General
Chief Complaint: Back Pain
Source: patient
Time Seen by Provider: 10/10/24 18:35
History of Present Illness
History of Present Illness:
54-year-old male patient with past medical history of previous spinal decompression surgery presenting to the emergency department for evaluation of lower back pain that has been gradually worsening for the last 2 to 3 weeks, today got to the
patient was unable to move noting sharp stabbing pain, spasmodic, no relief with tramadol. Patient denies any red flag symptoms including fevers or infectious symptoms, abnormal weight loss, saddle anesthesia, focal weakness or numbness, history of
substance abuse and denies any traumatic injuries, heavy lifting/bending/twisting.
Past History
Past History
ED Past Medical History: Other (Cervical spine disease, Kidney stones, Gout,); Negative Asthma, HTN, Hypercholesterolemia or NIDDM
ED Past Surgical History: Cholecystectomy and Orthopedic (Spinal decompression)
Social History
Tobacco: Non-smoker
Alcohol: Occasional
Drug: None
Personal: Single
Living: alone
Employment: Employed
Review of Systems
Review of Systems
All Other Systems: ROS reviewed and negative except as documented in HPI and ROS
Phy Exam
Physical Exam
Physical Exam:
GENERAL: Alert , in no apparent distress
EYE: clear conjunctiva b/l
NECK: Supple, no significant adenopathy.
ENT: o/p clr, mmm.
CARDIAC: Regular rate and rhythm .
LUNGS: Clear breath sounds bilaterally, no acute respiratory distress, no wheezes/rales/rhonchi
ABDOMEN: Soft, without focal tenderness, no r/g, no cvat
BACK: Normal range of motion, no focal tenderness, no midline bony tenderness, no rashes
NEUROLOGICAL: Alert and oriented, no focal neuro deficits. Patellar deep tendon reflexes intact and equal bilaterally, sensation grossly intact and equal to light touch bilateral lower extremities
SKIN: Warm and dry, skin intact.
MUSCULOSKELETAL: No edema, well perfused. EHL intact bilaterally
PSYCH: Normal and appropriate interaction.
Course
Orders/Labs/Results
Orders:
Orders
10/10/24 18:46
Dexamethasone Sod Phosphate [Decadron] 10 mg IM NOW STA
Diazepam [Valium] 5 mg PO NOW STA
Ketorolac [Toradol] 60 mg IM NOW STA
CR Lumbar Spine Comp Min 4 Vw* Urgent
Comment:
Reason For Exam: low back pain
10/10/24 20:52
Morphine Sulfate 4 mg IV NOW STA
10/10/24 20:53
Complete Blood Count/With Diff Urgent
Comprehensive Metabolic Panel Urgent
Urinalysis Reflex To Culture Urgent
Vital Signs
Initial and Last Documented VS:
Initial Vital Signs
Temp Pulse Resp BP Pulse Ox
98.4 F 88 18 150/92 96
10/10/24 17:00 10/10/24 17:00 10/10/24 17:00 10/10/24 17:00 10/10/24 17:00
Last Documented Vital Signs
Temp Pulse Resp BP Pulse Ox
98.4 F 54 14 139/83 98
10/10/24 17:00 10/10/24 20:39 10/10/24 20:39 10/10/24 20:39 10/10/24 20:39
*Radiology
Radiology exam reviewed: preliminary read by ED provider (Degenerative changes most pronounced within the lower lumbar spine)
*Critical Care Note
Total Time (30-74mins, 75-104mins- exclusive of procedures): Not Applicable
Patient Management
Discussion with other providers: Hospitalist
Escalation/DeEscalation of care consider admission/obs:
Patient with no relief following initial set of medications. His x-ray shows significant degenerative changes throughout the lower spine. I offered continued pain medicine at home or if patient felt he was unable to be discharged home due to his
continued pain that we could admit him here to the hospital continue pain control. Patient ultimately did not feel comfortable being discharged home. I notified hospitalist team who accepts for continued evaluation and treatment.
ED Attending Note
-
Portions of this chart may have been created with voice recognition software.� Occasional wrong word or��sound alike� substitutions may have occurred due to the inherent limitations of voice recognition software.
Discharge Plan
Departure
Patient Disposition: Admit
Date of Disposition: 10/10/24
Time of Disposition: 20:54
Presentation/result/management discussed w/ accepting MD/DO: Hospitalist
Patient with high blood pressure during this ER visit?: No
Discharge Problem:
Low back pain
Prescriptions:
New
oxycodone-acetaminophen [Percocet] 5-325 mg tablet
1 tab PO Q6HPRN PRN (Reason: pain) Qty: 10 0RF
methylprednisolone [Medrol (Todd)] 4 mg tablets,dose pack
4 mg PO DIRECTED Qty: 21 0RF
No Action
allopurinol 100 MG tablet
100 mg PO BID
Referrals:
Frank Alvarez MD [Active, Anesthesiology]
Galen Hernandez MD [Active, Orthopedics]
UNKNOWN - PT NOT,INTERVIEWE [Family Provider]
Interventions
Interventions:
*Risk Screen - Suicide Last Done: 10/10/24 17:00
*General Assessment Last Done: 10/10/24 17:00
*Neglect/Abuse Screening Last Done: 10/10/24 18:52
*ED- Fall Risk Assessment Last Done: 10/10/24 17:00
*ED COVID-19 Vaccine History Last Done: 10/10/24 17:00
ED-Musculoskeletal Assessment Last Done: 10/10/24 20:39
Discharge Date and Time
Print Language: ESTONIAN
[2024-10-10 20:39] VITALS: BP 139/83
--- NOTE | 2024-10-10 20:40 | EDRN ---
Pt with lower back pain x 2 weeks with no known injury. Pt says pain got worse today and was unrelieved with tramadol. Pt denies radiation of pain - no numbness/tingling in legs. Pt does not have pain while lying on stretcher. Pt has pain with
any movement. Pt says he is waiting to see if the medications given in ED take effect. If they do not, pt will stay in the hospital.
--- NOTE | 2024-10-10 20:56 | HPS.HSE ---
Family Physician
-
Family Physician: INTERVIEWE UNKNOWN - PT NOT
Chief Complaint
-
Back Pain
History of Present Illness
Patient is a 54 y/o male past medical history of gout and prior cervical spinal decompression who presents with low back pain. Patient reports worsening low back pain over the past 2 weeks. This morning he went to use the bathroom and back pain
got significantly worse. He describes as a sharp stabbing pain with movement. He denies any radiation of the pain down the legs. He denies lower extremity numbness or tingling or saddle anesthesia. He denies lower extremity weakness. He denies
fevers, sweats or chills. He denies any recent injury or heavy lifting.
Medical History
Past Medical History
Past Medical History: Reports Other
Additional Past Medical History:
Gout
Past Surgical History: Reports Other
Additional Past Surgical History:
Cervical Spine Decompression Surgery
Cholecystectomy
Social History
Tobacco: Non-smoker
Alcohol: Occasional
Family History
Family History: Not pertinent
Allergies / Home Medications
Allergies reflects when Allergies were last updated in [facility].
Home Medications with original date entered in [facility]
Allergy/Medication List:
Allergies
Allergy/AdvReac Type Severity Reaction Status Date / Time
No Known Allergies Allergy Verified 10/10/24 17:02
Home Medications
allopurinol 100 mg tablet 100 mg PO BID 05/31/21
Review of Systems
-
A 12 point ROS was completed and negative except as noted: Yes
Constitutional: Denies Fever or Chills
Respiratory: Denies Trouble Breathing
Cardiac: Denies Chest Pain
Abdomen/GI: Denies Abdominal Pain, Nausea or Vomiting
Musculoskeletal: Reports See HPI
Physical Exam
Vital Signs
Vital Signs
Temp Pulse Resp BP Pulse Ox
98.4 F 54 14 139/83 98
06/07/25 17:00 10/10/24 20:39 10/10/24 20:39 10/10/24 20:39 10/10/24 20:39
Physical Exam
General: No Apparent Distress, Pain (With Movement) and Morbidly Obese
HEENT: Anicteric and Moist mucous membranes
Respiratory: Clear and Non Labored Respirations
Cardiac: S1/S2 and Regular Rhythm
GI: Soft and Non Tender
Musculoskeletal: No Clubbing, No Cyanosis, No Edema and Other (Full range of motion of lower extremities)
Skin: Warm and Dry
Neuro: Awake, Alert, Oriented and Other (Intact strength bilateral lower extremities; Sensation grossly intake lower extremities)
Psych: Calm
Laboratory Results
-
Lumbar Spine X-Ray:
Degenerative changes.
No findings to suggest lumbar vertebral compression fracture.
Data Reviewed
-
Diagnostic Radiology: Report Reviewed by me
Lab Data: Labs Reviewed by me
Impression/Plan
-
Intractable Back Pain, suspect muscle spasm related
-Consult PT
-Pain management with Tylenol 1000mg TID, Toradol 15mg PRN mild/moderate pain and Morphine 4mg PRN severe pain
-Diazepam 2mg IV PRN muscle spasms
-Add Lidocaine Patch
-Consider Lumbar Spine MRI if pain is not improving
Gout
-Continue allopurinol
Morbid Obesity due to Excess Calories
-Affects all aspects of care
DVT proph: SCDs
Code Status: Full Code
--- NOTE | 2024-10-10 21:09 | W.PN.UPDATE ---
Update Note
Progress Note Update
Patient seen in conjunction with OTF. I agree the findings and physical. I concur with assessment plan listed otherwise.
Briefly, this is a 54-year-old with past medical history significant for gout, history of cholecystitis status post cholecystectomy presenting to the emergency department with acute onset of low back pain. Patient reportedly arose to the and found
himself to be having severe low back pain associated with difficulty with ambulation. Reports that anytime he stands or walks he has a sharp stabbing pain in the back. Denies having any urinary symptoms. He denies any fevers or chills. He denies
any bowel, bladder incontinence. Denies any constipation. He denies any numbness or tingling in his lower extremity. Denies any weakness but is unable to move due to pain. He denies any recent accidents, injuries, heavy lifting. No recent
travels or sick contact. No history of IV drug use.
In the emergency department the patient was afebrile, blood pressure was 140/80 with a pulse of 54 satting 98% on room air.
X-ray shows no vertebral compression deformity, hypertrophic degenerative changes throughout most prominent involving the posterior elements of the lower lumbar spine consistent with osteoarthritis of the lumbosacral spine.
Summary and plan
Patient with likely lumbago and musculoskeletal lower back pain. No alarm signs. No radicular signs. No signs of acute infection. No signs of kidney disease.
Admit to MedSurg observation
Urinalysis
CBC and chemistries pending
-Continue analgesics with acetaminophen/Toradol/IV morphine as needed
- Diazepam for moderate muscle relaxants
- Topical lidocaine
-Monitor closely for development of alarm signs, neurological symptoms or signs of infection, consider MRI at that time
- PT consult
DVT prophylaxis SCD
CODE STATUS�full code
[2024-10-10 21:10] LABS: % Basophils 0.4 % (0-2); % Eosinophils 1.2 % (0-6); % Immature Granulocytes 0.4 % (0-0.5); % Lymphocytes 21.6 % (20.5-51.1); % Monocytes 4.9 % (1.7-9.3); % Neutrophils 71.5 % (42.2-75.2); Absolute Eosinophils 0.1 10^3/uL (0-0.7); Absolute Lymphocytes 2.2 10^3/uL (1.2-3.4); Absolute Monocytes 0.5 10^3/uL (0.1-0.6); Absolute Neutrophils 7.4 10^3/uL (1.4-6.5); Hematocrit 41.3 % (39.0-52.0); Mean Corp Hgb Conc. 36.3 g/dL (33.0-37.0); Mean Corpuscular Hgb 32.5 pg (27.0-31.0); Mean Corpuscular Volume 89.4 fL (80.0-94.0); Mean Platelet Volume 10.3 fL (7.4-10.4); Nucleated Red Blood Cells % 0 % (-); Platelet Count 182 10^3/uL (130-400); Red Blood Cell Count 4.62 10^6/uL (4.70-6.10); Red Cell Dist. Width 12.9 % (11.5-14.5); White Blood Cell Count 10.3 10^3/uL (4.8-10.8)
[2024-10-10] MEDS: MORPHINE SULFATE 4 MG IV (21:15)
[2024-10-10 21:22] VITALS: BMI 44.6
[2024-10-10 21:26] LABS: ALT (SGPT) 44 U/L (0-50); AST (SGOT) 28 U/L (17-59); Albumin 4.4 g/dl (3.5-5.0); Alkaline Phosphatase 60 U/L (38-126); Blood Urea Nitrogen 12 mg/dl (9-20); Calcium 9.1 mg/dl (8.4-10.2); Carbon Dioxide 22 mmol/L (22-30); Chloride 111 mmol/L (98-107); Estimated Creatinine Clearance > 125 ml/min; Glucose 193 mg/dl (70-99); Potassium 4.4 mmol/L (3.5-5.1); Sodium 140 mmol/L (135-145); Total Bilirubin 0.6 mg/dl (0.2-1.3); Total Protein 7.7 g/dl (6.3-8.2); eGFR > 60.00
[2024-10-10 22:30] VITALS: BP 146/85; BMI 44.0
--- NOTE | 2024-10-10 22:30 | PTCARENOTE ---
Patient admitted for back pain. Per patient, experiencing pain for the last week but got severe yesterday morning. Patient is AAO x3 and calm. Denies any pain when remaining still. Any movement causes sharp intense pain that radiates to lower back.
Denies any changes or recent traumas that could cause back pain. At baseline, patient is ambulatory without any devices. Lives alone. Pain management with PRN medications. Will continue to monitor.
[2024-10-10] MEDS: TYLENOL 1000 MG PO (22:59)
[2024-10-11] MEDS: MORPHINE SULFATE 4 MG IV ×3 (01:13→14:09)
[2024-10-11 01:35] LABS: Urine Albumin 1+ (Neg - Trace); Urine Bilirubin Negative (Negative); Urine Character Clear (Clear); Urine Color Yellow; Urine Glucose 2+ (Negative); Urine Ketone 1+ (Negative); Urine Leukocyte Negative (Negative); Urine Nitrite Negative (Negative); Urine Occult Blood Negative (Negative); Urine Specific Gravity 1.025 (<1.030); Urine Urobilinogen Negative (Neg - 1+)
[2024-10-11 01:57] LABS: Urine Red Blood Cell None Seen /HPF (0-2); Urine Squamous Cell 0-2 /LPF (Few)
[2024-10-11 01:58] LABS: Urine White Cell None Seen /HPF (0-5)
[2024-10-11 01:59] LABS: Urine Hyaline Cast 0-2 /LPF (0-2)
[2024-10-11 06:50] LABS: Hematocrit 43.9 % (39.0-52.0); Hemoglobin 15.5 g/dL (13.0-18.0); Mean Corp Hgb Conc. 35.3 g/dL (33.0-37.0); Mean Corpuscular Volume 90.5 fL (80.0-94.0); Mean Platelet Volume 10.5 fL (7.4-10.4); Platelet Count 194 10^3/uL (130-400); Red Blood Cell Count 4.85 10^6/uL (4.70-6.10); Red Cell Dist. Width 12.8 % (11.5-14.5); White Blood Cell Count 12.7 10^3/uL (4.8-10.8)
[2024-10-11 07:14] LABS: Blood Urea Nitrogen 15 mg/dl (9-20); Calcium 9.2 mg/dl (8.4-10.2); Carbon Dioxide 21 mmol/L (22-30); Chloride 110 mmol/L (98-107); Estimated Creatinine Clearance > 125 ml/min; Glucose 270 mg/dl (70-99); Potassium 4.5 mmol/L (3.5-5.1); Sodium 140 mmol/L (135-145); eGFR > 60.00
[2024-10-11 07:30] VITALS: BP 134/66
--- NOTE | 2024-10-11 07:34 | W.PN.HOSP.TC ---
Today's Communication/Plan
-
Discharge home today
Assessment / Plan
Assessment / Plan
Impression:
Patient is a 54 y/o male past medical history of gout and prior cervical spinal decompression who presents with low back pain. Patient reports worsening low back pain over the past 2 weeks. This morning he went to use the bathroom and back pain
got significantly worse. He describes as a sharp stabbing pain with movement. He denies any radiation of the pain down the legs. He denies lower extremity numbness or tingling or saddle anesthesia. He denies lower extremity weakness. He denies
fevers, sweats or chills. He denies any recent injury or heavy lifting.
10/11
Back pain improved with pain medications.
Will be discharged on oral muscle relaxants, Toradol, Medrol pack
Assessment/plan:
Intractable Back Pain, suspect muscle spasm related
-Consult PT
-Pain management with Tylenol 1000mg TID, Toradol 15mg PRN mild/moderate pain and Morphine 4mg PRN severe pain
-Diazepam 2mg IV PRN muscle spasms
-Add Lidocaine Patch
-Consider Lumbar Spine MRI if pain is not improving
10/11
10/11
Back pain improved with pain medications.
Will be discharged on oral muscle relaxants, Toradol, Medrol pack
Gout
-Continue allopurinol
Morbid Obesity due to Excess Calories
-Affects all aspects of care
CODE STATUS: Full code
DVT prophylaxis: SCDS
Diet: Regular diet
Disposition: Discharge home today
Total time spent on today's encounter was 65 minutes which included time spent in counseling the patient/family regarding diagnosis and treatment plan as listed above, goals of care, and symptom management. Case was discussed with nursing staff,
specialists, and care coordinators/case management. All labs and imaging personally reviewed by me. Remainder the time spent in detailed review of previous records, lab data, imaging, and other medical provider documentation.
Anticipated Discharge: Today
Subjective/Interval History
-
Date of Service: October 11, 2024
Patient seen and examined at bedside, improved back pain ,denies any chest pain or shortness of breath, no abdominal pain, no nausea, no vomiting, no diarrhea or constipation.
Objective Data
-
Labs:
Laboratory Results
10/10/24 10/11/24
20:58 06:27
WBC 10.3 12.7 H
Hgb 15.0 15.5
Hct 41.3 43.9
Plt Count 182 194
Sodium 140 140
Potassium 4.4 4.5
Chloride 111 H 110 H
Carbon Dioxide 22 21 L
BUN 12 15
Creatinine 0.7 0.8
Glucose 193 H 270 H
Calcium 9.1 9.2
Total Bilirubin 0.6
AST 28
ALT 44
Alkaline Phosphatase 60
Vital Signs:
Vital Signs
Temp Pulse Resp BP Pulse Ox
98.2 F 65 20 146/85 94
10/10/24 22:30 10/10/24 22:30 10/10/24 22:30 10/10/24 22:30 10/10/24 22:30
I&O
10/10/24 10/11/24 10/12/24
06:59 06:59 06:59
Intake Total 120 / 120
Output Total 575 / 575
Balance -455 / -455
Physical Exam
-
General: Well Developed, Well Nourished, No Apparent Distress and Comfortable
HEENT: Normocephalic, Atraumatic, Moist Mucous Membranes, No Ptosis, PERRLA and Nose Appears Normal
Respiratory: Clear to Auscultation and Non Labored Respirations
Cardiac: Regular Rhythm and S1/S2
Breast: Deferred by me
GI: Soft, Nontender, Nondistended and Normal Bowel Sounds
Genito-urinary: No Costovertebral Tender
Musculoskeletal: No Clubbing, No Cyanosis, No Edema and Other (Mild left lower back paraspinal tenderness)
Skin: Warm
Neuro: Awake, Alert, Oriented, AO x 3 and No Motor Deficits
Psych: Calm
Data Reviewed
-
Diagnostic Radiology: Image personally visualized and interpreted and Report Reviewed by me
CT Scan: Image personally visualized and interpreted and Report Reviewed by me
Ultrasound: Image personally visualized and interpreted and Report Reviewed by me
MRI: Image personally visualized and interpreted and Report Reviewed by me
Medical Tests (Nuc Med, Echo etc): Image personally visualized and interpreted and Report Reviewed by me
Labs: Labs Reviewed by me
Old Records: Reviewed
[2024-10-11] MEDS: LIDOCAINE 4% PATCH 1 PATCH TOPICAL (07:38)
[2024-10-11] MEDS: ZYLOPRIM 100 MG PO (07:38)
[2024-10-11] MEDS: TYLENOL 1000 MG PO (07:38)
[2024-10-11] MEDS: TORADOL 15 MG IV ×2 (07:45→14:09)
[2024-10-11] MEDS: VALIUM INJECTION 2 MG IV (07:45)
[2024-10-11 09:51] LABS: Glycohemoglobin (HgbA1c) 8.9 % (4.0-5.6)
[2024-10-11] MEDS: DECADRON 4 MG IV (10:54)
[2024-10-11 11:34] VITALS: BP 154/87
[2024-10-11] MEDS: FLEXERIL 10 MG PO (12:12)
--- NOTE | 2024-10-11 13:47 | W.DCSUMMARY ---
Discharge Summary
Discharge Data
Date of Admission: 10/10/24
Date of Discharge: 10/11/24
-
Pending Results: No
Hospital Course
Hospital course
Patient is a 54 y/o male past medical history of gout and prior cervical spinal decompression who presents with low back pain. Patient reports worsening low back pain over the past 2 weeks. This morning he went to use the bathroom and back pain
got significantly worse. He describes as a sharp stabbing pain with movement. He denies any radiation of the pain down the legs. He denies lower extremity numbness or tingling or saddle anesthesia. He denies lower extremity weakness. He denies
fevers, sweats or chills. He denies any recent injury or heavy lifting.
10/11
Back pain improved with pain medications.
Will be discharged on oral muscle relaxants, Toradol, Medrol pack
also patient found to be diabetic and started on metformin.
Advised to follow-up with endocrine as outpatient.
During hospitalization patient was treated from the following
Intractable Back Pain, suspect muscle spasm related
-Consult PT
-Pain management with Tylenol 1000mg TID, Toradol 15mg PRN mild/moderate pain and Morphine 4mg PRN severe pain
-Diazepam 2mg IV PRN muscle spasms
-Add Lidocaine Patch
-Consider Lumbar Spine MRI if pain is not improving
10/11
10/11
Back pain improved with pain medications.
Will be discharged on oral muscle relaxants, Toradol, Medrol pack
New onset diabetes.
Patient aware of diabetes diagnosis last week during PCP visit.
Hemoglobin A1c came back 8.9.
Start metformin.
Patient sent home with glucometer prescription.
Also advised to follow-up with endocrine as outpatient
Diabetic diet
Gout
-Continue allopurinol
Morbid Obesity due to Excess Calories
-Affects all aspects of care
CODE STATUS: Full code
DVT prophylaxis: SCDS
Diet: DM diet upon Dc
Disposition: Discharge home today
Total time spent on today's encounter was 40 minutes which included time spent in counseling the patient/family regarding diagnosis and treatment plan as listed above, goals of care, and symptom management. Case was discussed with nursing staff,
specialists, and care coordinators/case management. All labs and imaging personally reviewed by me. Remainder the time spent in detailed review of previous records, lab data, imaging, and other medical provider documentation.
Anticipated Discharge: Today
Discharge Plan
-
Patient Disposition: Home (Routine Discharge)
Discharge Diagnosis/Procedures: Intractable Back Pain, suspect muscle spasm related.
New onset Diabetes.
Diet: Diabetic, Carb Controlled
Activity: As tolerated
Other Services: PT and OT
Referrals:
Alondra Brenann MD [Consulting Staff, Endocrinology] - in two to three weeks
Walter Denis Jr., DO [Family Provider, [facility]]
Prescriptions:
New
methylprednisolone [Medrol (Todd)] 4 mg tablets,dose pack
4 mg PO DIRECTED Qty: 21 0RF
cyclobenzaprine 10 mg Tablet
10 mg PO TIDPRN PRN (Reason: Muscle spasm) 10 Days Qty: 30 0RF
Rx Instructions:
No driving after taking muscle relaxer
lidocaine 4 % Adhesive Patch,Medicated
1 patch topical DAILY 15 Days Qty: 15 0RF
ketorolac 10 mg tablet
10 mg PO Q6H PRN (Reason: Pain) 5 Days Qty: 20 0RF
pantoprazole [Protonix] 40 mg tablet,delayed release (DR/EC)
40 mg PO DAILY Qty: 14 0RF
metformin 500 mg tablet
500 mg PO BID Qty: 60 0RF
(DME) blood-glucose meter Kit
See Rx Instructions .Route Qty: 1 0RF
Rx Instructions:
As directed
(DME) Accu-Chek Isi Plus test strp Strip
See Rx Instructions .Route Qty: 100 0RF
Rx Instructions:
As directed
(DME) lancets 28 gauge misc
See Rx Instructions .Route Qty: 100 0RF
Rx Instructions:
As directed
(DME) Outpatient physical therapy
See Rx Instructions .Route .MEDSUPPLY Qty: 1 0RF
Rx Instructions:
to be done 3 times weekly.
Diagnosis: Back pain
Continued
allopurinol 100 MG tablet
100 mg PO BID
Discharge Orders:
Discharge Patient (As Directed); Ordered 10/11/24
Ordered By: Kwaku Hart
Discharge Date and Time
Print Language: OCCITAN
--- NOTE | 2024-10-11 14:28 | CM ---
CM reviewed chart, patient seen bedside, for discharge today. Patient resides independently in an apartment, no elevator access. Patient is independent with ADLs/IADLs, denies use of DME. Patient denies VN/SNF history. Patient confirms PCP Walter
Adeel, [facility] in [place]. CM discussed PT recommendations of outpatient therapy, patient declining at this time. OBS form reviewed verbally, declines need for copy, placed in chart. Patient confirms transportation home. CM will
continue to follow for all discharge planning needs.
Plan; home no needs, declining outpatient therapy.
--- NOTE | 2024-10-11 14:29 | PTCARENOTE ---
Patient provided hygiene supplies and encouraged multiple times to brush teeth and freshen up. Patient states, 'I have not been able to get into the bathroom. My roommate was in there all day.' Patient is now being discharged and will shower at
home.
[2024-10-11 14:30] VITALS: BP 110/73
== END 2024-10-11 15:16 | disposition home or self-care (01) ==
LOC: 4 WEST ACU 21:27
PROVIDERS: Physician Assistant Medical; ADMITTING PHYSICIAN Internal Medicine; ATTENDING PHYSICIAN General Practice; EMERGENCY PHYSICIAN Student in an Organized Health Care Education/Training Program; FAMILY PHYSICIAN Family Medicine
DX: M54.9 Dorsalgia, unspecified (principal); M54.50 Low back pain, unspecified; M10.9 Gout, unspecified; E11.9 Type 2 diabetes mellitus without complications; E66.01 Morbid (severe) obesity due to excess calories; Z68.41 Body mass index [BMI] 40.0-44.9, adult; Z79.899 Other long term (current) drug therapy
CPT/HCPCS: 72110; 80048; 80053; 81003; 81015; 83036; 85025; 85027; 96372; 96374; 97162; 99284; G0378

== ENCOUNTER 2024-10-19 14:51 | Emergency (ER) | payer OTHER, SELFPAY ==
[2024-10-19 14:53] VITALS: BP 166/107
--- NOTE | 2024-10-19 16:11 | ED.GENMED ---
History of Present Illness
General
Chief Complaint: Back Pain
Time Seen by Provider: 10/19/24 16:10
History of Present Illness
History of Present Illness:
REVIEW OF OLD RECORDS
- I reviewed records, the patient was seen here and admitted to the hospital 9 days ago for an overnight stay. The patient was given Tylenol, Toradol, and morphine as well as diaze. He was also steve found to have new onset of diabetes. Has a
history of morbid obesity. X-ray of the L-spine 9 days ago showed degenerative changes.
Initially evaluated patient at 4:20 PM
CHIEF COMPLAINT(S)
Ongoing low back pain
HISTORY OF PRESENT ILLNESS
The patient is a 54-year-old male presenting with ongoing low back pain. The pain has been persistent and it appears the patient is seeking management options outside of stronger pain medications. He was recently hospitalized for a similar complaint
but did not undergo magnetic resonance imaging (MRI) during that visit. However, an MRI was ordered by his primary care provider and performed three days ago, though the results are still pending. The patient does not have a particular desire for
stronger pain relief, indicating a preference for possibly alternative management strategies.
PHYSICAL EXAM
- General: Well appearing, elevated BMI, but appears somewhat uncomfortable
- HEENT: Moist oral mucosa
- Abdomen: Soft with no peritoneal signs, no tenderness
- Neurologic: Excellent strength all extremities, no coordination deficits, excellent strength in an L5 and S1 distribution, he was able to flex at the knees and hips without any significant difficulty
- Psychiatric: Appropriate mental status, normal insight and judgement
- Back: Decreased active range of motion of the thoracolumbar spine, no significant T or L-spine tenderness in the midline, there is mild left paraspinal lumbar tenderness
- Extremities: Nontender, no edema, moves all extremities equally
- Skin: Venous insufficiency skin changes noted to the lower extremities
EXTERNAL RECORDS REVIEWED
An MRI was performed three days ago, ordered by the patients primary care physician, though the results have not been accessed at this point.
PLAN
I asked Dr. Nu Tolbert, radiologist to review the images to ensure that there is no major finding on MRI. I also reached out to Dr. Galen Hernandez, on-call for [facility] however the patient's spine surgeon is actually Dr. Nathan Hernandez and .
Galen Hernandez is not aware of this patient at all.
The Differential Diagnosis includes, in no particular order and is not limited to:
1. Lumbar strain
2. Herniated disc
3. Degenerative disc disease
4. Spinal stenosis
5. Osteoarthritis of the spine
6. Sacroiliac joint dysfunction
7. Ankylosing spondylitis
8. Vertebral compression fracture
9. Spondylolisthesis
10. Metastatic bone disease
RADIOLOGY
- Not indicated
EKG
- Not indicated
LABS
- Not indicated
UPDATE
I did offer and consider narcotic analgesia such as Percocet however the patient is not interested
10/19/24 - 17:09
The diagnostic report is pending and expected by tomorrow morning. The patient continues to experience severe pain, making mobility difficult, with no significant relief from physical therapy or current medication. Tramadol is the mainstay for pain
management as the patient reports potential side effects from steroids, such as elevated blood sugar. The recent x-ray revealed degenerative changes but no acute findings. The patient is considering a Toradol injection for pain, and discharge
paperwork is in preparation. The patient also noted discoloration on the right leg possibly due to venous stasis or superficial varicosities, which does not appear alarming. No immediate neuro or spine consultation available on site.
Past History
Past History
ED Past Medical History: Other (Cervical spine disease, Kidney stones, Gout,); Negative Asthma, HTN, Hypercholesterolemia or NIDDM
ED Past Surgical History: Cholecystectomy and Orthopedic (Spinal decompression)
Social History
Tobacco: Non-smoker
Alcohol: Occasional
Drug: None
Personal: Single
Living: alone
Employment: Employed
Phy Exam
Physical Exam
Physical Exam:
See HPI
Course
Vital Signs
Initial and Last Documented VS:
Initial Vital Signs
Temp Pulse Resp BP Pulse Ox
36.7 C 91 16 166/107 98
10/19/24 14:53 10/19/24 14:53 10/19/24 14:53 10/19/24 14:53 10/19/24 14:53
Last Documented Vital Signs
Temp Pulse Resp BP Pulse Ox
36.7 C 91 16 166/107 98
10/19/24 14:53 10/19/24 14:53 10/19/24 14:53 10/19/24 14:53 10/19/24 14:53
*Pulse Oximetry
Patient hypoxic: no (98% on room air)
*Critical Care Note
Total Time (30-74mins, 75-104mins- exclusive of procedures): Not Applicable
ED Attending Note
-
Portions of this chart may have been created with voice recognition software.� Occasional wrong word or��sound alike� substitutions may have occurred due to the inherent limitations of voice recognition software.
Discharge Plan
Departure
Patient Disposition: Home (Routine Discharge)
Date of Disposition: 10/19/24
Time of Disposition: 17:09
Patient with high blood pressure during this ER visit?: Yes
Discharge Problem:
Low back pain
Instructions: Low Back Pain (DC), BLOOD PRESSURE
Prescriptions:
No Action
allopurinol 100 MG tablet
100 mg PO BID
methylprednisolone [Medrol (Todd)] 4 mg tablets,dose pack
4 mg PO DIRECTED Qty: 21 0RF
cyclobenzaprine 10 mg Tablet
10 mg PO TIDPRN PRN (Reason: Muscle spasm) 10 Days Qty: 30 0RF
Rx Instructions:
No driving after taking muscle relaxer
lidocaine 4 % Adhesive Patch,Medicated
1 patch topical DAILY 15 Days Qty: 15 0RF
ketorolac 10 mg tablet
10 mg PO Q6H PRN (Reason: Pain) 5 Days Qty: 20 0RF
pantoprazole [Protonix] 40 mg tablet,delayed release (DR/EC)
40 mg PO DAILY Qty: 14 0RF
metformin 500 mg tablet
500 mg PO BID Qty: 60 0RF
(DME) blood-glucose meter Kit
See Rx Instructions .Route Qty: 1 0RF
Rx Instructions:
As directed
(DME) Accu-Chek Isi Plus test strp Strip
See Rx Instructions .Route Qty: 100 0RF
Rx Instructions:
As directed
(DME) lancets 28 gauge misc
See Rx Instructions .Route Qty: 100 0RF
Rx Instructions:
As directed
(DME) Outpatient physical therapy
See Rx Instructions .Route .MEDSUPPLY Qty: 1 0RF
Rx Instructions:
to be done 3 times weekly.
Diagnosis: Back pain
Referrals:
Walter Denis Jr., DO [Family Provider, Family Practice]
Activity Restrictions/Additional Instructions:
I called [facility] at [phone] however they told me that there is no MRI report available. Our radiologist here [place] were not willing to read the outside MRI. Dr. Galen Hernandez is the on-call doctor with [facility] and
he is not aware anything about your case and could not expedite any sooner outpatient visit with Dr. Nathan Hernandez. I recommend that you call [facility] tomorrow and see if they can get you the report.
Interventions
Interventions:
*Risk Screen - Suicide Last Done: 10/19/24 14:53
*General Assessment Last Done: 10/19/24 16:22
*Neglect/Abuse Screening Last Done: 10/19/24 14:53
*ED- Fall Risk Assessment Last Done: 10/19/24 16:22
*ED COVID-19 Vaccine History Last Done: 10/19/24 16:22
ED-Musculoskeletal Assessment Last Done: 10/19/24 16:21
Discharge Date and Time
Print Language: CZECH
[2024-10-19] MEDS: TORADOL 30 MG IM (17:38)
== END 2024-10-19 17:44 | disposition home or self-care (01) ==
LOC: EMR 14:51
PROVIDERS: EMERGENCY PHYSICIAN Emergency Medicine; FAMILY PHYSICIAN Family Medicine
DX: M54.50 Low back pain, unspecified (principal); E11.9 Type 2 diabetes mellitus without complications; Z90.49 Acquired absence of other specified parts of digestive tract
CPT/HCPCS: 99284; 96372

== ENCOUNTER 2024-12-22 00:03 | Emergency (ER) | payer OTHER, SELFPAY ==
[2024-12-22 00:15] VITALS: BP 144/79
--- NOTE | 2024-12-22 02:05 | ED.GENMED ---
History of Present Illness
<Jamilah Nuñez DO, Resident - Last Filed: 12/22/24 06:39>
General
Chief Complaint: DVT/Possible Blood Clot
Source: patient
Exam Limitations: none
Time Seen by Provider: 12/22/24 02:05
Nursing documentation reviewed up to this point in time: agreed with
History of Present Illness
History of Present Illness:
Patient is a 54-year-old male past medical history of gout presenting with lower left leg discomfort. Patient has been experiencing discomfort in his left calf for the last month. Patient describes the discomfort as [id number] that move
around his leg, heat behind the knee and occasional swelling of the left calf. Patient also notes discoloration of his bilateral shins that has been worsening for the last 10 years. Patient has not taken any medications for the calf discomfort.
Patient denies any recent travel, or recent periods of sitting for a long time. 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 Patient states that the medication he takes is allopurinol. Patient notes he has
recently lost about 15 pounds through changes in his diet.
Past History
<Jamilah Nuñez DO, Resident - Last Filed: 12/22/24 06:39>
Past History
ED Past Medical History: Other (Cervical spine disease, Kidney stones, Gout,); Negative Asthma, HTN, Hypercholesterolemia or NIDDM
ED Past Surgical History: Cholecystectomy and Orthopedic (Spinal decompression)
Social History
Tobacco: Non-smoker
Alcohol: Occasional
Drug: None
Personal: Single
Living: alone
Employment: Employed
Review of Systems
<Jamilah Nuñez DO, Resident - Last Filed: 12/22/24 06:39>
Review of Systems
Allergies reviewed?: Yes
All Other Systems: ROS reviewed and negative except as documented in HPI and ROS
Constitutional: Reports no symptoms
EENT: Reports no symptoms
Respiratory: Reports no symptoms
Cardiac: Reports no symptoms
ABD/GI: Reports no symptoms
: Reports no symptoms
Musculoskeletal: Reports other (Swelling noted in his left leg.)
Skin: Reports other (Discoloration of bilateral shins and calves)
Neurological: Reports no symptoms
Endocrine: Reports no symptoms
Hematologic/Lymphatic: Reports no symptoms
Psychiatric: Reports no symptoms
Phy Exam
<Jamilah Nuñez DO, Resident - Last Filed: 12/22/24 06:39>
General Physical Exam
General Presentation: well appearing and no apparent distress
General age: appears stated age
General Skin: warm and dry
General Habitus: obese
General Mental: alert
Cardiovascular Exam
Cardiovascular Exam: regular rate/rhythm
Heart Sounds: normal
Pulmonary Exam
Pulmonary Exam: lungs clear, no respiratory distress, no crackles and no wheezing
Gastrointestinal Exam
Gastrointestinal Exam: normal bowel sounds, non tender and soft
Neurological Exam
Neurological Exam: alert and oriented x3
Musculoskeletal Exam
Musculoskeletal Exam: other (Discoloration of bilateral shins noted, sparing foot and ankle and sock pattern. Nontender calves. Mild bilateral lower extremity swelling.)
Skin Exam
Skin Exam: normal color and warm/dry
Psychiatric Exam
Psychiatric Exam: normal mood/affect
Course
<Jamilah Nuñez DO, Resident - Last Filed: 12/22/24 06:39>
Orders/Labs/Results
Orders:
Orders
12/22/24 00:20
US Legs, Left [US Periph Venous LOWER Ext LT] Urgent
Comment: states calf area feels warm
Reason For Exam: l lower leg is swollen and tender
Vital Signs
Initial and Last Documented VS:
Initial Vital Signs
Temp Pulse Resp BP Pulse Ox
98.6 F 75 20 144/79 96
12/22/24 00:15 12/22/24 00:15 12/22/24 00:15 12/22/24 00:15 12/22/24 00:15
Last Documented Vital Signs
Temp Pulse Resp BP Pulse Ox
98.6 F 76 18 143/88 99
12/22/24 00:15 12/22/24 03:47 12/22/24 03:47 12/22/24 03:47 12/22/24 03:47
<Caitie Cook DO - Last Filed: 12/22/24 03:26>
Orders/Labs/Results
Orders:
Orders
12/22/24 00:20
US Legs, Left [US Periph Venous LOWER Ext LT] Urgent
Comment: states calf area feels warm
Reason For Exam: l lower leg is swollen and tender
Vital Signs
Initial and Last Documented VS:
Initial Vital Signs
Temp Pulse Resp BP Pulse Ox
98.6 F 75 20 144/79 96
12/22/24 00:15 12/22/24 00:15 12/22/24 00:15 12/22/24 00:15 12/22/24 00:15
Last Documented Vital Signs
Temp Pulse Resp BP Pulse Ox
98.6 F 76 18 143/88 99
12/22/24 00:15 12/22/24 03:47 12/22/24 03:47 12/22/24 03:47 12/22/24 03:47
<Jamilah Nuñez DO, Resident - Last Filed: 12/22/24 06:39>
MDM/Problems Addressed
Differential Diagnosis Includes:
Venous insufficiency, dependent edema, DVT
MDM/Problems Addressed:
Lower extremity ultrasound negative for DVT. Discussed with patient that he likely has venous stasis related changes in his b/l legs. Will recommend follow-up with vascular surgery. Will discharge patient.
<Jamilah Nuñez DO, Resident - Last Filed: 12/22/24 06:39>
*Pulse Oximetry
SaO2: 96
Oxygen Mode of Delivery: Room air
Patient hypoxic: no
*Critical Care Note
Total Time (30-74mins, 75-104mins- exclusive of procedures): Not Applicable
ED Attending Note
<Jamilah Nuñez DO, Resident - Last Filed: 12/22/24 06:39>
-
Portions of this chart may have been created with voice recognition software.� Occasional wrong word or��sound alike� substitutions may have occurred due to the inherent limitations of voice recognition software.
<Caitie Cook DO - Last Filed: 12/22/24 03:26>
ED Attending Note
Patient seen and examined by attending physician: Yes
I performed the substantive portion of visit, reviewed & personally made and approve the management plan that is documented in note by myself or CARLOS ALBERTO.: Yes
I performed a history and physical exam of patient and discussed management with resident, I reviewed resident's note and agree with documented findings and plan of care.: Yes
ED Attending Note:
54-year-old male presents to the ER for evaluation of left lower extremity discomfort which has admittedly been bothering him for at least a month. He reports 10+ years history of discoloration to his bilateral lower extremities. He is currently
engaging with trying to lose weight in order to improve his overall health. He denies any recent injury or trauma. No prior personal history of venous thromboembolism. Vital signs reviewed, patient is awake, alert, appears in no acute distress,
bilateral lower extremities reveal no edema, chronic venous stasis changes, 2+ DP pulses present symmetric bilateral feet with brisk cap refill to the toes, no asymmetry on palpatory exam bilateral lower extremities. I discussed with patient likely
chronic venous stasis changes as etiology of symptoms. Ultrasound does not reveal acute DVT. Will discharge patient to follow-up with primary care physician.
Discharge Plan
Departure
Patient Disposition: Home (Routine Discharge)
Date of Disposition: 12/22/24
Time of Disposition: 03:37
Patient with high blood pressure during this ER visit?: Yes
Discharge Problem:
Left leg pain
Instructions: BLOOD PRESSURE
Prescriptions:
No Action
allopurinol 100 MG tablet
100 mg PO BID
methylprednisolone [Medrol (Todd)] 4 mg tablets,dose pack
4 mg PO DIRECTED Qty: 21 0RF
cyclobenzaprine 10 mg Tablet
10 mg PO TIDPRN PRN (Reason: Muscle spasm) 10 Days Qty: 30 0RF
Rx Instructions:
No driving after taking muscle relaxer
lidocaine 4 % Adhesive Patch,Medicated
1 patch topical DAILY 15 Days Qty: 15 0RF
ketorolac 10 mg tablet
10 mg PO Q6H PRN (Reason: Pain) 5 Days Qty: 20 0RF
pantoprazole [Protonix] 40 mg tablet,delayed release (DR/EC)
40 mg PO DAILY Qty: 14 0RF
metformin 500 mg tablet
500 mg PO BID Qty: 60 0RF
(DME) blood-glucose meter Kit
See Rx Instructions .Route Qty: 1 0RF
Rx Instructions:
As directed
(DME) Accu-Chek Isi Plus test strp Strip
See Rx Instructions .Route Qty: 100 0RF
Rx Instructions:
As directed
(DME) lancets 28 gauge misc
See Rx Instructions .Route Qty: 100 0RF
Rx Instructions:
As directed
(DME) Outpatient physical therapy
See Rx Instructions .Route .MEDSUPPLY Qty: 1 0RF
Rx Instructions:
to be done 3 times weekly.
Diagnosis: Back pain
Referrals:
Jimmy Prieto III, MD [Active, Vascular Surgery]
Walter Denis Jr., DO [Family Provider, Family Practice]
Activity Restrictions/Additional Instructions:
Providing referral for vascular surgery, Dr. Jimmy Preito, for further discussion and work up of chronic venous stasis changes. Please return to the emergency department if your symptoms worsen.
Interventions
Interventions:
*Risk Screen - Suicide Last Done: 12/22/24 00:15
*General Assessment Last Done: 12/22/24 02:11
*Neglect/Abuse Screening Last Done: 12/22/24 02:11
*ED- Fall Risk Assessment Last Done: 12/22/24 02:11
*ED COVID-19 Vaccine History Last Done: 12/22/24 02:11
*Nursing Disposition Last Done: 12/22/24 03:48
ED- Cardiac Assessment Last Done: 12/22/24 02:11
ED- Pulmonary Assessment Last Done: 12/22/24 02:11
ED-Skin Assessment Last Done: 12/22/24 02:11
Discharge Date and Time
Discharge Date/Time: 12/22/24 03:48
Print Language: STATELESS
[2024-12-22 02:11] VITALS: BMI 43.7
[2024-12-22 03:47] VITALS: BP 143/88
== END 2024-12-22 03:48 | disposition home or self-care (01) ==
LOC: EMR 00:03
PROVIDERS: EMERGENCY PHYSICIAN Emergency Medicine; FAMILY PHYSICIAN Family Medicine
DX: M79.605 Pain in left leg (principal); R22.42 Localized swelling, mass and lump, left lower limb
CPT/HCPCS: 99284; 93971

== ENCOUNTER 2025-02-17 11:17 | Emergency (ER) | payer OTHER, SELFPAY ==
[2025-02-17 11:21] VITALS: BP 144/89
[2025-02-17 11:30] VITALS: BMI 43.2
--- NOTE | 2025-02-17 12:48 | ED.GENMED ---
History of Present Illness
General
Chief Complaint: Skin Problem
Source: patient
Exam Limitations: none
Time Seen by Provider: 02/17/25 11:58
Nursing documentation reviewed up to this point in time: agreed with
History of Present Illness
History of Present Illness:
55-year-old male with no clinically significant past medical history presents for burning sensation and pain left calf, behind left knee and posterior distal left thigh that woke him at 730 this morning. As he got up and around and showered the
pain has subsided and is not there now. He was here 12/22/24 for similar symptoms but the pain was just behind his left knee at that time and his ultrasound was negative. He is concerned for blood clot today because now the pain is also in his calf
and his thigh. He denies chest pain or trouble breathing.
He states he has had similar symptoms for the past 1 to 2 years lasting about an hour intermittently and resolving with getting up and walking around.
Past History
Past History
ED Past Medical History: Other (Cervical spine disease, Kidney stones, Gout,)
ED Past Surgical History: Cholecystectomy and Orthopedic (Spinal decompression)
Social History
Tobacco: Non-smoker
Alcohol: Occasional
Drug: None
Personal: Single
Living: alone
Employment: Employed
Review of Systems
Review of Systems
Allergies reviewed?: Yes
All Other Systems: ROS reviewed and negative except as documented in HPI and ROS
Phy Exam
Physical Exam
Physical Exam:
GENERAL: No acute distress. A&Ox3.
CONSTITUTIONAL: Afebrile.
RESPIRATORY: Regular respirations, nonlabored, lungs clear.
CARDIOVASCULAR: Regular rate and rhythm, no murmurs, no rubs.
GI: Soft, obese, nontender
MUSCULOSKELETAL: Moves with ease. Well perfused. Left leg is without swelling or discoloration. There is no tenderness to palpation of the entire leg, specifically calf, popliteal area or distal thigh. Full range of motion. Distal neurovascular
intact.
SKIN: Warm, dry, pink
PSYCH: Normal mood and affect. Well kept, interactive and appropriate
NEUROLOGIC: Awake, alert and oriented. No focal neurological deficits
Course
Orders/Labs/Results
Orders:
Orders
02/17/25 12:20
US Periph Venous LOWER Ext LT Urgent
Comment:
Reason For Exam: pain left calf, behind L knee, post lower thigh
Vital Signs
Initial and Last Documented VS:
Initial Vital Signs
Temp Pulse Resp BP Pulse Ox
98.2 F 79 20 144/89 98
02/17/25 11:21 02/17/25 11:21 02/17/25 11:21 02/17/25 11:21 02/17/25 11:21
Last Documented Vital Signs
Temp Pulse Resp BP Pulse Ox
98.7 F 76 18 128/78 95
02/17/25 14:04 02/17/25 14:04 02/17/25 14:04 02/17/25 14:04 02/17/25 14:04
MDM/Problems Addressed
Differential Diagnosis Includes:
Muscle strain, muscle spasm, DVT
MDM/Problems Addressed:
55-year-old male with no clinically significant past medical history presents for burning sensation and pain left calf, behind left knee and posterior distal left thigh that woke him at 730 this morning. As he got up and around and showered the
pain has subsided and is not there now. He was here 12/22/24 for similar symptoms but the pain was just behind his left knee at that time and his ultrasound was negative. He is concerned for blood clot today because now the pain is also in his calf
and his thigh. He denies chest pain or trouble breathing.
He states he has had similar symptoms for the past 1 to 2 years lasting about an hour intermittently and resolving with getting up and walking around.
1:30 PM:
Ultrasound negative for DVT. Patient reassured. Patient ambulated out with normal gait at discharge
Pt info sent to PCP hotline and they will contact pt for PCP
*Pulse Oximetry
SaO2: 98
Oxygen Mode of Delivery: Room air
Patient hypoxic: no
*Critical Care Note
Total Time (30-74mins, 75-104mins- exclusive of procedures): Not Applicable
ED Attending Note
-
Portions of this chart may have been created with voice recognition software.� Occasional wrong word or��sound alike� substitutions may have occurred due to the inherent limitations of voice recognition software.
Discharge Plan
Departure
Patient Disposition: Home (Routine Discharge)
Date of Disposition: 02/17/25
Time of Disposition: 13:39
Patient with high blood pressure during this ER visit?: No
Condition: Good
Discharge Problem:
Pain in left leg
Instructions: Musculoskeletal Pain
Prescriptions:
No Action
allopurinol 100 MG tablet
100 mg PO BID
methylprednisolone [Medrol (Todd)] 4 mg tablets,dose pack
4 mg PO DIRECTED Qty: 21 0RF
cyclobenzaprine 10 mg Tablet
10 mg PO TIDPRN PRN (Reason: Muscle spasm) 10 Days Qty: 30 0RF
Rx Instructions:
No driving after taking muscle relaxer
lidocaine 4 % Adhesive Patch,Medicated
1 patch topical DAILY 15 Days Qty: 15 0RF
ketorolac 10 mg tablet
10 mg PO Q6H PRN (Reason: Pain) 5 Days Qty: 20 0RF
pantoprazole [Protonix] 40 mg tablet,delayed release (DR/EC)
40 mg PO DAILY Qty: 14 0RF
metformin 500 mg tablet
500 mg PO BID Qty: 60 0RF
(DME) blood-glucose meter Kit
See Rx Instructions .Route Qty: 1 0RF
Rx Instructions:
As directed
(DME) Accu-Chek Isi Plus test strp Strip
See Rx Instructions .Route Qty: 100 0RF
Rx Instructions:
As directed
(DME) lancets 28 gauge misc
See Rx Instructions .Route Qty: 100 0RF
Rx Instructions:
As directed
(DME) Outpatient physical therapy
See Rx Instructions .Route .MEDSUPPLY Qty: 1 0RF
Rx Instructions:
to be done 3 times weekly.
Diagnosis: Back pain
Referrals:
Walter Denis Jr., DO [Family Provider, Family Practice]
Activity Restrictions/Additional Instructions:
As we discussed, your ultrasound is negative for any clot.
Interventions
Interventions:
*Risk Screen - Suicide Last Done: 02/17/25 11:29
*General Assessment Last Done: 02/17/25 11:21
*Neglect/Abuse Screening Last Done: 02/17/25 11:29
*ED- Fall Risk Assessment Last Done: 02/17/25 11:25
*ED COVID-19 Vaccine History Last Done: 02/17/25 11:25
*ED Influenza Vaccine History Last Done: 02/17/25 11:25
*Nursing Disposition Last Done: 02/17/25 14:04
ED-Skin Assessment Last Done: 02/17/25 11:25
Discharge Date and Time
Discharge Date/Time: 02/17/25 14:00
Print Language: SAO TOMEAN
[2025-02-17 13:14] VITALS: BP 125/82
--- NOTE | 2025-02-17 14:03 | EDRN ---
Reviewed discharge instructions with patient. Verbalized understanding. Ambulated with steady gait to the lobby.
[2025-02-17 14:04] VITALS: BP 128/78
== END 2025-02-17 14:00 | disposition home or self-care (01) ==
LOC: EMR 11:17
PROVIDERS: EMERGENCY PHYSICIAN Emergency Medicine; FAMILY PHYSICIAN Family Medicine
DX: M79.662 Pain in left lower leg (principal); M10.9 Gout, unspecified
CPT/HCPCS: 99284; 93971